=== PATIENT | female | born 1985 | race Caucasian/White ===

== ENCOUNTER 2021-02-05 14:17 | Outpatient (CLI) | payer BC | END 2021-02-05 14:18 | disposition home or self-care (01) | LOC: CSHMRI 14:17 | PROVIDERS: ATTEND Specialist | DX: M51.16 Intervertebral disc disorders with radiculopathy, lumbar region (principal); M51.17 Intervertebral disc disorders with radiculopathy, lumbosacral region | CPT/HCPCS: 72148 ==

== ENCOUNTER 2022-09-20 15:00 | Outpatient (CLI) | payer BC ==
[2022-09-20] MEDS ORDERED: Magnevist 469MG/ML 20 ML VIAL ONE (15:23)
== END 2022-09-20 15:01 | disposition home or self-care (01) ==
LOC: CSHMRI 15:00
PROVIDERS: ATTEND Family Medicine
DX: M54.16 Radiculopathy, lumbar region (principal); Z98.890 Other specified postprocedural states
CPT/HCPCS: 72158